=== PATIENT | female | born 1980 | race Caucasian/White ===

== ENCOUNTER 2019-12-27 08:34 | Emergency (ER) | payer OTHER, SELFPAY ==
--- NOTE | 2019-12-27 08:37 | ED.GENADULT ---
HPI - General Adult General Chief complaint: Upper Respiratory Infection Stated complaint: Cough/Sore Throat Time Seen by Provider: 12/27/19 08:37 Source: patient Mode of arrival: ambulatory Limitations: no limitations History of Present Illness HPI narrative: 39-year-old female patient presents to [facility] with complaints of cough and sore throat for the past 7 days. Patient denies any fevers or ear pain. Patient states she has a runny nose, stuffy nose, drainage to the back the throat, sore throat and a cough. Denies any chest pain, shortness of breath, abdominal pain, nausea, vomiting or diarrhea. Patient states that she was taking Mucinex for her symptoms. Patient states that she also saw a tele-doc couple of days ago and they gave her some Tessalon Perles and some Flonase which she has been taking. Patient feels like it is not improving her cough much. Patient states that she did get a flu shot this year. Related Data Home Medications Medication Instructions Recorded Confirmed benzonatate [Tessalon Perles] 100 mg PO TID 12/27/19 12/27/19 fluticasone propionate [Allergy 1 spray INTRANASAL Q12H 12/27/19 12/27/19 Relief (fluticasone)] Allergies Allergy/AdvReac Type Severity Reaction Status Date / Time No Known Allergies Allergy Mild Verified 12/27/19 08:41 Review of Systems Review of Systems: Narrative: CONSTITUTIONAL: Denies fever, chills, or sweats. EYES: Denies visual changes, redness, or discharge. ENT: Positive rhinorrhea, congestion, sore throat, denies otalgia. CARDIOVASCULAR: Denies chest pain, palpitations, or edema. RESPIRATORY: Positive cough, denies dyspnea. GASTROINTESTINAL: Denies abdominal pain, nausea, vomiting, or diarrhea. GENITOURINARY: Denies dysuria or hematuria. SKIN: Denies rash or itching. MUSCULOSKELETAL: Denies back pain, joint pain, or myalgia. NEUROLOGIC: Denies headache, numbness, or weakness. PSYCHIATRIC: Denies anxiety or depression. [facility] Family History Family History Father Heart problem Mother Hypertension Social History Social History Smoking status: Never smoker Alcohol intake: current Comments At the time of my signature I agree with nursing past medical history, surgical, social, and family history. There is no relevant family history pertinent to the presenting complaint. Exam Narrative: Exam Narrative: GENERAL: Well-appearing, well-nourished, and in no acute distress. HEAD: Normocephalic, atraumatic. No tenderness noted to frontal or maxillary sinuses on palpation. EYES: PERRLA and EOMI. ENT: Nares clear, no rhinorrhea or epistaxis. Mucous membranes moist. Posterior pharynx with no erythema, tonsil enlargement, exudates or lesions present. Bilateral TMs are clear no erythema or foreign bodies in the canal. NECK: Supple. No lymphadenopathy CHEST: Clear to auscultation. No respiratory distress. HEART: Regular rate and rhythm. No murmur heard. Normal peripheral pulses. ABDOMEN: Soft, nontender, nondistended, normal active bowel sounds. EXTREMITIES: Normal range of motion. No edema. SKIN: Warm, dry, no rash. NEURO: No focal deficits. Alert and oriented x3. Course Vital Signs Vital signs: Vital Signs Temperature 37.6 C 12/27/19 08:40 Pulse Rate 98 12/27/19 08:40 Respiratory Rate 14 12/27/19 08:40 Blood Pressure 118/65 12/27/19 08:40 Pulse Oximetry 97 12/27/19 08:40 Temperature 37.6 C 12/27/19 08:40 Pulse Rate 98 12/27/19 08:40 Respiratory Rate 14 12/27/19 08:40 Blood Pressure 118/65 12/27/19 08:40 Pulse Oximetry 97 12/27/19 08:40 Vital signs reviewed. Medical Decision Making Differential Diagnosis Differential Diagnosis: Differential diagnosis: Allergic rhinitis, chronic sinusitis, tonsillitis, acute sinusitis, infectious mononucleosis, seasonal influenza, pertussis, diphtheria, meningococcal disease,
[2019-12-27 08:40] VITALS: BP 118/65; PULSE 98; RESP 14; TEMP 37.6; O2SAT 97
== END 2019-12-27 09:01 | disposition home or self-care (01) ==
PROVIDERS: Emergency Provider Nurse Practitioner Family
DX: J06.9 Acute upper respiratory infection, unspecified (principal); R05 Cough
CPT/HCPCS: 99213; G0463

== ENCOUNTER → 2021-06-09 15:58 | Outpatient (REF) | payer OTHER, SELFPAY | LOC: ANHLAB 15:58 | PROVIDERS: Visit Provider Nurse Practitioner | DX: L72.0 Epidermal cyst (principal) | CPT/HCPCS: 88304 ==